=== PATIENT | female | born 1955 | race Asian ===

== ENCOUNTER 2019-05-23 18:20 | Emergency (ER) | payer OTHER ==
[~2019-05-23] VITALS: Ht 149.9 cm; Wt 82.1 kg
[2019-05-23] MEDS ORDERED: LISI20TA31 PO (18:42)
[2019-05-23 19:54] LABS: PLATELET COUNT 221 K/uL (152-353)
[2019-05-23 19:55] LABS: POTASSIUM 3.8 mmol/L (3.6-5.2)
[2019-05-23 21:50] VITALS: BP 144/79; TEMP 97.9
== END 2019-05-23 21:50 | disposition home or self-care (01) ==
LOC: ED 18:20
PROVIDERS: Emergency Medicine Emergency Medical Services
DX: K52.9 Noninfective gastroenteritis and colitis, unspecified (principal)
CPT/HCPCS: 80053; 83735; 85027; 96360; 96375; 99284; J2405

== ENCOUNTER 2019-08-28 09:38 | Emergency (ER) | payer OTHER ==
[~2019-08-28] VITALS: Ht 149.9 cm; Wt 82.1 kg
[~2019-08-28 09:38] MED LIST: LISI20TA31 PO
[2019-08-28 10:48] LABS: PLATELET COUNT 173 K/uL (152-353)
[2019-08-28 10:56] LABS: POTASSIUM 3.8 mmol/L (3.6-5.2)
[2019-08-28 11:44] VITALS: BP 160/78; TEMP 97.9
== END 2019-08-28 11:45 | disposition home or self-care (01) ==
LOC: ED 09:38
PROVIDERS: Family Medicine
DX: J10.1 Influenza due to other identified influenza virus with other respiratory manifestations (principal); N39.0 Urinary tract infection, site not specified; R51 Headache
CPT/HCPCS: 80053; 81000; 85027; 87086; 87088; 87502; 99283

== ENCOUNTER 2019-10-29 10:33 | Emergency (ER) | payer OTHER ==
[~2019-10-29] VITALS: Ht 149.9 cm; Wt 75.8 kg
[2019-10-29 10:45] VITALS: TEMP 98.1
[2019-10-29 12:00] VITALS: BP 141/79
== END 2019-10-29 12:00 | disposition home or self-care (01) ==
LOC: ED 10:33
PROC: 2W3LX1Z Immobilization of Right Lower Extremity using Splint (ICD-10-PCS; principal; 2019-10-29)
DX: S83.8X1A Sprain of other specified parts of right knee, initial encounter (principal); S93.491A Sprain of other ligament of right ankle, initial encounter; W10.8XXA Fall (on) (from) other stairs and steps, initial encounter; Y92.89 Other specified places as the place of occurrence of the external cause
CPT/HCPCS: 96372; 99283; J1885

== ENCOUNTER 2020-11-15 10:58 | Emergency (ER) | payer OTHER ==
[~2020-11-15] VITALS: Ht 149.9 cm; Wt 90.7 kg
[2020-11-15 11:03] VITALS: TEMP 97.2
[2020-11-15 12:00] LABS: PLATELET COUNT 246 K/uL (152-353)
[2020-11-15 12:27] LABS: POTASSIUM 4.1 mmol/L (3.6-5.2)
[2020-11-15 15:50] VITALS: BP 128/65
== END 2020-11-15 15:50 | disposition home or self-care (01) ==
LOC: ED 10:58
PROVIDERS: Family Medicine
DX: K57.30 Diverticulosis of large intestine without perforation or abscess without bleeding (principal); K57.32 Diverticulitis of large intestine without perforation or abscess without bleeding
CPT/HCPCS: 36415; 80053; 81000; 85027; 96374; 96375; 99284; J1885; J2405

== ENCOUNTER 2020-12-16 12:50 | Emergency (ER) | payer OTHER | END 2020-12-16 14:27 | disposition home or self-care (01) | LOC: ED 12:50 | DX: S60.121A Contusion of right index finger with damage to nail, initial encounter (principal); W22.8XXA Striking against or struck by other objects, initial encounter; Y92.096 Garden or yard of other non-institutional residence as the place of occurrence of the external cause | CPT/HCPCS: 99283 ==